=== PATIENT | female | born 1955 | race Caucasian/White ===

== ENCOUNTER 2018-02-04 14:31 | Emergency (ER) | payer MEDICAID ==
[~2018-02-04] VITALS: Ht 152 cm; Wt 54.4 kg
[~2018-02-04 14:31] MED LIST: BENADRYL ALLERG25 M5 PO; MEDROL DOSEPAK4 MG PO; PEPCID20 MG PO
[2018-02-04] MEDS ORDERED: CEFADROXIL500 M1 PO (14:47)
[2018-02-04] MEDS ORDERED: ANAPROX DS550 MG PO (14:47)
== END 2018-02-04 17:13 | disposition home or self-care (01) ==
LOC: ED 14:31
DX: L03.011 Cellulitis of right finger (principal)

== ENCOUNTER 2021-12-16 08:32 | Emergency (ER) | payer MEDICARE, MEDICAID ==
[~2021-12-16] VITALS: Ht 152.4 cm; Wt 59.0 kg
[~2021-12-16 08:32] MED LIST changes: +ANAPROX DS550 MG PO; +CEFADROXIL500 M1 PO
[2021-12-16] MEDS ORDERED: TYLENOL325 M1 PO (10:41)
[2021-12-16] MEDS ORDERED: NAPROXEN250 MG PO (10:41)
== END 2021-12-16 12:17 | disposition home or self-care (01) ==
LOC: ED 08:32
DX: S82.432A Displaced oblique fracture of shaft of left fibula, initial encounter for closed fracture (principal); W00.0XXA Fall on same level due to ice and snow, initial encounter; Y93.89 Activity, other specified; Y92.89 Other specified places as the place of occurrence of the external cause; Y99.8 Other external cause status

== ENCOUNTER → 2022-01-05 | Outpatient (CLI) | payer MEDICARE, MEDICAID ==
[~2022-01-05] MED LIST changes: +ASPIRIN ADULT L81 M2 PO; +DOXYCYCLINE HY100 M3 PO; +NAPROXEN250 MG PO; +TRAMADOL HCL50 MG PO; +TYLENOL325 M1 PO; +XARELTO10 MG PO
[2022-01-05 11:57] LABS: BASO % 0.3 % (0.0-1.0); HEMATOCRIT 44.4 % (37.0-47.0); LYMPH % 15.5 % (27.0-41.0); MEAN CELL VOLUME 90.1 fl (81.0-99.0); MEAN CORPUSCULAR HGB 30.2 pg (27.0-31.0); MEAN CORPUSCULAR HGB CONC 33.6 g/dl (33.0-37.0); MEAN PLATELET VOLUME 10.9 fl (9.6-12.3); MONO # 0.4 10*3/uL (0.1-1.0); MONO % 5.7 % (3.0-9.0); NEUT % 78.2 % (47.0-73.0); PLATELET COUNT AUTOMATED 184 10*3/uL (130-400); RED BLOOD COUNT 4.93 10*6/uL (4.10-5.10); RED CELL DISTRI WIDTH 12.7 % (0-14.5); WHITE BLOOD COUNT 6.5 10*3/uL (4.8-10.8)
[2022-01-05 12:14] LABS: ALBUMIN 3.8 gm/dl (3.1-4.5); CHLORIDE 111 mmol/L (98-107); POTASSIUM 3.1 mmol/L (3.5-5.1); SODIUM 143 mmol/L (136-145)
[2022-01-05 12:20] LABS: ALKALINE PHOSPHATASE 115 U/L (45-117); BUN 8 mg/dl (7-24); CREATININE 0.77 mg/dL (0.55-1.02); SGOT/AST 21 IU/L (3-35); SGPT/ALT 30 U/L (12-78); TOTAL PROTEIN 6.9 gm/dL (6.4-8.2)
== END | disposition home or self-care (01) ==
LOC: CT 11:00 → LAB 11:12
PROVIDERS: Student in an Organized Health Care Education/Training Program; ATTEND Podiatrist Foot & Ankle Surgery
DX: S82.852A Displaced trimalleolar fracture of left lower leg, initial encounter for closed fracture (principal); M25.772 Osteophyte, left ankle; M79.89 Other specified soft tissue disorders; R00.0 Tachycardia, unspecified; X58.XXXA Exposure to other specified factors, initial encounter; Y93.89 Activity, other specified; Y92.89 Other specified places as the place of occurrence of the external cause; Y99.8 Other external cause status

== ENCOUNTER → 2022-01-12 | Day surgery (SDC) | payer MEDICARE, MEDICAID ==
[2022-01-07 11:31] VITALS: BP 137/75
[2022-01-12] VITALS (9 sets, daily range): BP systolic 126–145; BP diastolic 57–77
[~2022-01-12] VITALS: Ht 149.8 cm; Wt 56.2 kg
== END | disposition home or self-care (01) ==
LOC: SDC 01-07 14:00
PROVIDERS: ATTEND Podiatrist
DX: S82.852A Displaced trimalleolar fracture of left lower leg, initial encounter for closed fracture (principal); Z20.822 Contact with and (suspected) exposure to COVID-19; W00.0XXA Fall on same level due to ice and snow, initial encounter; Y93.89 Activity, other specified; Y92.89 Other specified places as the place of occurrence of the external cause; Y99.8 Other external cause status

== ENCOUNTER 2022-03-30 07:33 | Emergency (ER) | payer MEDICARE, MEDICAID ==
[~2022-03-30] VITALS: Wt 54.4 kg
[2022-03-30 08:06] LABS: BASO % 0.4 % (0.0-1.0); EOS % 0.2 % (1.0-4.0); HEMATOCRIT 46.4 % (37.0-47.0); LYMPH # 1.2 10*3/uL (1.3-4.4); LYMPH % 14.6 % (27.0-41.0); MEAN CELL VOLUME 89.4 fl (81.0-99.0); MEAN CORPUSCULAR HGB 29.9 pg (27.0-31.0); MEAN CORPUSCULAR HGB CONC 33.4 g/dl (33.0-37.0); MEAN PLATELET VOLUME 10.7 fl (9.6-12.3); MONO # 0.3 10*3/uL (0.1-1.0); MONO % 4.1 % (3.0-9.0); NEUT # 6.8 10*3/uL (2.3-7.9); NEUT % 80.5 % (47.0-73.0); PLATELET COUNT AUTOMATED 185 10*3/uL (130-400); RED BLOOD COUNT 5.19 10*6/uL (4.10-5.10); WHITE BLOOD COUNT 8.4 10*3/uL (4.8-10.8)
[2022-03-30 08:18] LABS: ACT PARTIAL THROMBO TIME 25.6 SECONDS (20.0-32.1)
[2022-03-30 08:28] LABS: ALKALINE PHOSPHATASE 120 U/L (45-117); BUN 11 mg/dl (7-24); CHLORIDE 109 mmol/L (98-107); LIPASE 70 U/L (73-393); POTASSIUM 3.3 mmol/L (3.5-5.1); SGOT/AST 16 IU/L (3-35); SGPT/ALT 19 U/L (12-78); SODIUM 142 mmol/L (136-145); TOTAL PROTEIN 7.2 gm/dL (6.4-8.2)
== END 2022-03-30 10:25 | disposition left against medical advice (07) ==
LOC: ED 07:33
PROVIDERS: Emergency Medicine
DX: I48.91 Unspecified atrial fibrillation (principal); Z98.51 Tubal ligation status; Z88.1 Allergy status to other antibiotic agents

== ENCOUNTER → 2022-03-30 | Outpatient (CLI) | payer MEDICARE, MEDICAID ==
[2022-03-25 11:55] VITALS: BP 152/80
[~2022-03-30] VITALS: Ht 149.8 cm; Wt 53.5 kg
[2022-03-30 06:30] VITALS: BP 134/102
== END ==
LOC: SDC 03-25 13:15 → CARD 00:01 → SDC 01:55 → EDSTATUS 13:15 → SDC 13:15
PROVIDERS: ATTEND Podiatrist
DX: Z47.2 Encounter for removal of internal fixation device (principal); I48.91 Unspecified atrial fibrillation; Z53.8 Procedure and treatment not carried out for other reasons

== ENCOUNTER → 2022-05-17 | Outpatient (CLI) | payer MEDICARE, MEDICAID ==
[2022-05-17 08:15] LABS: CHOLESTEROL 244 mg/dL (<200); LDL CHOLESTEROL 166 mg/dL (9-159); TRIGLYCERIDES 89 mg/dl (<150)
== END | disposition home or self-care (01) ==
LOC: LAB 07:45
PROVIDERS: ATTEND Internal Medicine Cardiovascular Disease
DX: I10 Essential (primary) hypertension (principal)

== ENCOUNTER → 2023-01-17 | Outpatient (CLI) | payer MEDICARE, MEDICAID ==
[2023-01-17 08:53] LABS: GAMMA GLUTAMYL TRANSPEPTIDASE 23 U/L (0-73)
[2023-01-18 06:07] LABS: HEPATITIS A AB, TOTAL Positive (Negative)
[2023-01-18 13:06] LABS: ANTI-DSDNA ANTIBODIES <1 IU/mL (0-9); ANTI-RNP ANTIBODIES 0.3 AI (0.0-0.9); ANTICHROMATIN ANTIBODIES <0.2 AI (0.0-0.9); ANTISCLERODERMA-70 AB <0.2 AI (0.0-0.9); SJOGREN ANTI-SS-A 0.3 AI (0.0-0.9); SJOREN AB, ANTI-SS-B <0.2 AI (0.0-0.9)
[2023-01-18 14:08] LABS: ANTI-SMOOTH MUSCLE ANTIBODY 8 Units (0-19)
== END | disposition home or self-care (01) ==
LOC: LAB 08:14
PROVIDERS: ATTEND Student in an Organized Health Care Education/Training Program
DX: R74.8 Abnormal levels of other serum enzymes (principal); R73.9 Hyperglycemia, unspecified

== ENCOUNTER → 2023-01-20 | Outpatient (CLI) | payer MEDICARE, MEDICAID | END | disposition home or self-care (01) | LOC: LAB 08:32 | PROVIDERS: ATTEND Student in an Organized Health Care Education/Training Program | DX: R74.8 Abnormal levels of other serum enzymes (principal); R76.8 Other specified abnormal immunological findings in serum; E55.9 Vitamin D deficiency, unspecified ==